=== PATIENT | female | born 1995 | race American Indian/Alaskan Native ===

== ENCOUNTER 2017-12-21 15:30 | Emergency (ER) | payer SELFPAY ==
[2017-12-21 15:38] VITALS: BP 118/65
[2017-12-21] MEDS ORDERED: ULTRAM PO ONE (16:51)
[2017-12-21] MEDS ORDERED: MOTRIN PO ONE (16:51)
--- NOTE | 2017-12-21 16:51 | XRay Report ---
FINAL REPORT EXAM: XR HAND 3+V LT HISTORY: left hand injury TECHNIQUE: AP, lateral, and oblique views of the left hand PRIORS: None. FINDINGS: There is no evidence for acute fracture or dislocation. No soft tissue swelling or radiopaque foreign bodies are seen. Bony mineralization is normal and joint spaces are maintained. IMPRESSION: No acute bony or soft tissue abnormality noted.
--- NOTE | 2017-12-21 16:55 | Emergency Department Report ---
ED Upper Extremity Inj HPI - General Chief Complaint: Extremity Injury, Upper Stated Complaint: LEFT HAND PAIN Time Seen by Provider: 12/21/17 16:39 Source: patient Mode of arrival: Ambulatory Limitations: No Limitations - History of Present Illness Initial Comments: Patient is a 22-year-old female who is presenting with left wrist injury. Patient states she was helping her mother move and a large tire rolled out of the truck she braced her her face to ensure she didn't get hit with a tire and it ended up bending her wrist back. Patient has pain at the ulnar side of the left wrist and she has some mild soreness to the trapezius on the left. Patient states that his aching pain 6 out of 10 in severity moving makes it worse resting makes it better - Related Data Home Medications Medication Instructions Recorded Confirmed Last Taken Ibuprofen [Motrin] 1 tab PO Q8H PRN 01/12/14 01/12/14 01/11/14 22:00 Previous Rx's Medication Instructions Recorded Last Taken Type Cephalexin [Keflex] 500 mg PO TID #21 capsule 01/14/14 Unknown Rx HYDROcodone/APAP 10-325 [Twilight 1 each PO Q6HR PRN #16 tablet 01/14/14 Unknown Rx 10-325 mg TAB] Sulfamethoxazole/Trimethoprim 1 each PO BID #20 tablet 09/14/14 Unknown Rx [Bactrim Ds] Clindamycin [Clindamycin CAP] 300 mg PO Q6HR #40 capsule 10/31/15 Unknown Rx Ibuprofen [Motrin 600 MG tab] 600 mg PO Q8H PRN #30 tablet 10/31/15 Unknown Rx HYDROcodone/APAP 5-325 [Twilight 1 each PO Q6HR PRN #12 tablet 12/21/17 Unknown Rx 5/325] Ibuprofen [Motrin] 600 mg PO Q8H PRN #16 tablet 12/21/17 Unknown Rx Allergies Allergy/AdvReac Type Severity Reaction Status Date / Time metronidazole [From Flagyl] Allergy Anaphylaxis Verified 01/12/14 12:45 Metronidazole HCl Allergy Anaphylaxis Verified 01/12/14 12:45 [From Flagyl] ED Review of Systems ROS: Stated complaint: LEFT HAND PAIN Other details as noted in HPI Comment: All other systems reviewed and negative ED Past Medical Hx - Past Medical History Previous Medical History?: No - Surgical History Past Surgical History?: No - Social History Smoking Status: Current Every Day Smoker Substance Use Type: Alcohol - Medications Home Medications: Home Medications Medication Instructions Recorded Confirmed Last Taken Type Ibuprofen [Motrin] 1 tab PO Q8H PRN 01/12/14 01/12/14 01/11/14 22:00 History Cephalexin [Keflex] 500 mg PO TID #21 capsule 01/14/14 Unknown Rx HYDROcodone/APAP 10-325 [Twilight 1 each PO Q6HR PRN #16 tablet 01/14/14 Unknown Rx 10-325 mg TAB] Sulfamethoxazole/Trimethoprim 1 each PO BID #20 tablet 09/14/14 Unknown Rx [Bactrim Ds] Clindamycin [Clindamycin CAP] 300 mg PO Q6HR #40 capsule 10/31/15 Unknown Rx Ibuprofen [Motrin 600 MG tab] 600 mg PO Q8H PRN #30 tablet 10/31/15 Unknown Rx HYDROcodone/APAP 5-325 [Twilight 1 each PO Q6HR PRN #12 tablet 12/21/17 Unknown Rx 5/325] Ibuprofen [Motrin] 600 mg PO Q8H PRN #16 tablet 12/21/17 Unknown Rx ED Physical Exam - General Limitations: No Limitations General appearance: alert, in no apparent distress - Head Head exam: Present: atraumatic, normocephalic - Eye Eye exam: Present: normal appearance - ENT ENT exam: Present: mucous membranes moist - Neck Neck exam: Present: normal inspection - Respiratory Respiratory exam: Present: normal lung sounds bilaterally. Absent: respiratory distress - Cardiovascular Cardiovascular Exam: Present: regular rate, normal rhythm. Absent: systolic murmur, diastolic murmur, rubs, gallop - GI/Abdominal GI/Abdominal exam: Present: soft, normal bowel sounds - Extremities Exam Extremities exam: Present: normal inspection - Back Exam Back exam: Present: normal inspection - Neurological Exam Neurological exam: Present: alert, oriented X3 - Psychiatric Psychiatric exam: Present: normal affect, normal mood - Skin Skin exam: Present: warm, dry, intact, normal color. Absent: rash ED Course Vital Signs 12/21/17 15:35 Temperature 99.6 F Pulse Rate 78 Respiratory 20 Rate Blood Pressure 118/65 O2 Sat by Pulse 100 Oximetry ED Medical Decision Making - Radiology Data Radiology results: image reviewed interpreted by me: X-ray of the wrist shows no acute fracture of the distal ulna patient has no tenderness to the radial side of the wrist over the anatomical snuffbox of the distal radius does have a small cortical irregularity that looks like could be a healed old fracture or area where her growth plate is fusing Critical care attestation.: If time is entered above; I have spent that time in minutes in the direct care of this critically ill patient, excluding procedure time. ED Disposition Clinical Impression: Left wrist sprain Disposition: TO HOME OR SELFCARE Is pt being admited?: No Does the pt Need Aspirin: No Condition: Stable Instructions: Wrist Injury (ED) Prescriptions: HYDROcodone/APAP 5-325 [Twilight 5/325] 1 each PO Q6HR PRN #12 tablet PRN Reason: Pain Ibuprofen [Motrin] 600 mg PO Q8H PRN #16 tablet PRN Reason: Pain
== END 2017-12-21 17:27 | disposition home or self-care (01) ==
LOC: ED 15:30
DX: S63.502A Unspecified sprain of left wrist, initial encounter (principal); F17.200 Nicotine dependence, unspecified, uncomplicated; Z88.8 Allergy status to other drugs, medicaments and biological substances; W22.8XXA Striking against or struck by other objects, initial encounter; Y93.89 Activity, other specified; Y92.89 Other specified places as the place of occurrence of the external cause; Y99.8 Other external cause status
CPT/HCPCS: 99283